=== PATIENT | male | born 1970 | race Caucasian/White ===

== ENCOUNTER 2020-10-15 13:08 | Emergency (ER) | payer SELFPAY ==
[2020-10-15 13:24] VITALS: BP 122/76
== END 2020-10-15 16:04 | disposition left against medical advice (07) ==
LOC: ED 13:08
DX: R07.89 Other chest pain (principal); Z53.21 Procedure and treatment not carried out due to patient leaving prior to being seen by health care provider
CPT/HCPCS: 93005